=== PATIENT | female | born 1950 | race Caucasian/White ===

== ENCOUNTER → 2017-04-18 | Outpatient (CLI) | payer MEDICARE, BC ==
--- NOTE | 2017-04-18 12:01 | WWHP ---
[facility] - HISTORY AND PHYSICAL DATE OF SERVICE: 04/18/2017 CHIEF COMPLAINT: The patient is here for her routine gynecologic exam and mammogram. HPI: This is a 67-year-old, G2, P2, with an LMP of 1999. The patient is without gynecologic complaints. PAST MEDICAL HISTORY: Multiple sclerosis, hypothyroidism, and osteoporosis. She is status post Fosamax use for more than 5 years in the past. PAST MEDICATIONS: 1. Copaxone 40 mg 3 times weekly. 2. Amantadine 100 mg b.i.d. 3. Baclofen 20 mg q.i.d. 4. Synthroid 75 mcg daily. 5. Xanax 1 mg p.r.n. for anxiety and insomnia. 6. Vitamin D3 two thousand units 1 daily. ALLERGIES: BACTRIM and SULFA, both of which caused rashes. PAST SURGICAL HISTORY: Tubal ligation 1980, appendectomy 1970, colonoscopy in 2016 and this was her fourth one. 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 SOCIAL HISTORY: She denies tobacco, alcohol, and drug use. She has been since 1969 and is sexually active. 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 FAMILY HISTORY: Father had colon cancer. Mother had lung cancer and paternal grandmother had uterine cancer. REVIEW OF SYSTEMS: She has lost 4 pounds over the last year. She denies cardiac or GI problems. RESPIRATORY: She she is getting over a cold. She denies maltreatment or falling. : She sometimes has to get to the bathroom right away and occasionally will have some leakage if she does not get there in time. PHYSICAL EXAM: Blood pressure 138/85, height 5 feet 1 inch, weight 127 pounds, BMI 24. Temperature 97.5, pulse 64. This is a well-developed, well-nourished, white female, who is alert and oriented x3, in no acute distress. HEENT is within normal limits. NECK: Supple without mass or thyromegaly. CHEST AND LUNGS: Clear to auscultation. HEART: Regular rate and rhythm. Breasts are without mass or discharge. Axillary exam is negative for adenopathy. BACK: Negative for CVA tenderness. ABDOMEN: Soft, nontender, without palpable masses. PELVIC EXAMINATION: External genitalia reveals moderate atrophy without lesions. Cervix and vagina reveal [id number] atrophy without lesions. There is no evidence of prolapse. The uterus is mid-position, nongravid size and nontender. There are no palpable adnexal masses or tenderness. Rectovaginal exam is negative for mass or tenderness and is negative for occult blood. EXTREMITIES: Nontender. IMPRESSION: 1. A 67-year-old menopausal female with normal gynecologic exam. 2. History of osteoporosis, status post greater than 5 years of Fosamax use in the past. PLAN: 1. Pap smear was deferred since she had a normal one last year. 2. Self breast examination was discussed. 3. Mammogram will be done today. 4. Bone density testing will be done today. Osteoporosis management was discussed. 5. She states she will be getting her flu shot through Dr. Pearson in the near future. 6. She will return in 1 year. MMODL / IJN: [id number] /
--- NOTE | 2017-04-18 16:24 | BD ---
EXAMINATION TYPE: MG DEXA axial skeleton. DATE OF EXAM: 04/18/2017 COMPARISON: NONE CLINICAL HISTORY: 67-year-old female postmenopausal screening without HRT. Height: 60 IN Weight: 125 LBS FRAX RISK QUESTIONS: Alcohol (3 or more units per day): NO Family History (Parent hip fracture): NO Glucocorticoids (More than 3mos): NO (Ex: prednisone, prednisolone, methylprednisolone, dexamethasone, and hydrocortisone). History of Fracture in Adulthood: NO Secondary Osteoporosis: 1. Type 1 Diabetes: NO 2. Hyperthyroidism: NO 3. Menopause before 45: NO 4. Malnutrition: NO 5. Chronic liver disease: NO Rheumatoid Arthritis: NO Current Tobacco Use: NO RISK FACTORS HISTORY OF: Active: LOW - MODERATE Postmenopausal woman: AGE 50 Take estrogen and/or progesterone medications: NOT NOW How long: AGE 50 - 51 Lost more than 2 inches in height since high school: YES 3" Frequent falls: YES FALLS DUE TO MS MEDICATIONS: Thyroid Medications: YES Which medication: Synthroid How Lon YEARS Osteoporosis Medications: NOT NOW Which medication: Fosamax How Long: AGE 53 - 61 Additional Medications: VIT D, COPAXONE, BACLOFEN, AMANTADINE,SYNTHROID, XANAX, EXAM MEASUREMENTS: Bone mineral densitometry was performed using the FPSI System. Bone mineral density as measured about the Lumbar spine is: ----- L1-L4(G/cm2): 1.084 T Score Values are as follows: ----- L2: -0.9 ----- L3: -1.2 ----- L4: -0.1 ----- L1-L4: -0.8 Bone mineral density has: Decreased -4.8% since study of: 04/25/2014 Bone mineral density about the R hip (g/cm2): 0.743 Bone mineral density about the L hip (g/cm2): 0.787 T Score values are as follows: -----R Neck: -2.1 -----L Neck: -1.8 -----R Total: -2.7 -----L Total: -2.1 Bone mineral density has: Decreased -10.6% since study of: 04/25/2014 IMPRESSION: Osteoporosis (T Score less than -2.5) as noted by T Score values at the right hip. There is increased fracture risk and therapy is usually indicated based on age. Re-Screen 1-2 years. NOTE: T-SCORE=SD OF THE YOUNG ADULT MEAN.
--- NOTE | 2017-04-20 08:02 | MM ---
Reason for exam: screening (asymptomatic). Last mammogram was performed 1 year ago. History: Patient is postmenopausal. Physical Findings: A clinical breast exam by your physician is recommended on an annual basis and results should be correlated with mammographic findings. MG 3D Screening Mammo W/Cad Bilateral CC and MLO view(s) were taken. Prior study comparison: April 12, 2016, bilateral MG 3d screening mammo w/cad. April 07, 2015, bilateral MG screening mammo w CAD. There are scattered fibroglandular densities. There is no discrete abnormality. No significant changes when compared with prior studies. ASSESSMENT: Negative, BI-RAD 1 RECOMMENDATION: Routine screening mammogram of both breasts in 1 year.
== END | disposition home or self-care (01) ==
LOC: WWCWWP 10:29
PROVIDERS: ATTEND Obstetrics & Gynecology
DX: Z12.31 Encounter for screening mammogram for malignant neoplasm of breast (principal); M81.0 Age-related osteoporosis without current pathological fracture
CPT/HCPCS: 77080; 77063; G0202; 82270

== ENCOUNTER → 2017-06-09 | Outpatient (CLI) | payer MEDICARE, BC ==
--- NOTE | 2017-06-09 10:58 | US ---
EXAMINATION TYPE: US abdomen complete DATE OF EXAM: 06/09/2017 COMPARISON: Limited abdominal ultrasound January 28, 2013 CLINICAL HISTORY: R10.11 rt upper quad pain. EXAM MEASUREMENTS: Liver Length: 14.9 cm Gallbladder Wall: 0.2 cm CBD: 0.5 cm Spleen: 11.5 cm Right Kidney: 9.4 x 3.3 x 4.2 cm Left Kidney: 9.8 x 3.9 x 3.8 cm Extensive midline bowel gas Pancreas: small portion of head and tail obscure by bowel gas, portions visualized wnl Liver: wnl Gallbladder: wnl Evidence for sonographic Herzog's sign: no CBD: wnl Spleen: wnl Right Kidney: wnl Left Kidney: Inferior pole obscured by bowel gas Upper IVC: wnl Abd Aorta: portions visualized wnl partially obscured by overlying bowel gas Exam noted suboptimal due to shadowing from overlying bowel gas. The liver is homogenous. The intrahepatic portion of the IVC and visualized abdominal aorta are with in normal limits. There is no evidence of cholelithiasis. Common bile duct is unremarkable. The vi sualized portions of the pancreas are homogenous. The spleen is unremarkable. Kidneys are symmetric and free of hydronephrosis. No renal lesions are seen. IMPRESSION: Suboptimal study without significant finding seen to account for patient's symptoms.
== END | disposition home or self-care (01) ==
LOC: RADUSWWP 07:05
PROVIDERS: ATTEND Family Medicine
DX: R10.11 Right upper quadrant pain (principal)
CPT/HCPCS: 76700

== ENCOUNTER → 2017-06-16 | Outpatient (CLI) | payer MEDICARE, BC ==
--- NOTE | 2017-06-16 15:07 | NM ---
EXAMINATION TYPE: NM hepatobiliary w EF DATE OF EXAM: 06/16/2017 COMPARISON: NONE HISTORY: R10.11 RUQ pain TECHNIQUE: After the intravenous administration of 5.24 mCi Tc 99m Mebrofenin hepatobiliary scintigra phy is performed. Immediate images post injection. FINDINGS: There is satisfactory initial accumulation of tracer by the liver. The gallbladder is visualized wit hin 34 minutes. The small bowel activity is noted within 14 minutes. At one hour 8 ounces of oral e nsure plus is given to mimic CCK and gallbladder ejection fraction is calculated at 52 %, in the norm al range. Therefore there is no scintigraphic evidence of cystic or common bile duct obstruction to suggest acute cholecystitis or gallbladder dyskinesia. IMPRESSION: Exam is within normal limits.
== END | disposition home or self-care (01) ==
LOC: RADNMMAIN 12:56
PROVIDERS: ATTEND Family Medicine
DX: R10.11 Right upper quadrant pain (principal); Z88.1 Allergy status to other antibiotic agents
CPT/HCPCS: 78226; A9537

== ENCOUNTER → 2017-06-23 | Outpatient (CLI) | payer MEDICARE, BC ==
[~2017-06-23] MED LIST: REGADENOSON 0.4 MG/5 ML SYRINGE IV ONE
--- NOTE | 2017-06-23 10:44 | EST ---
EXERCISE STRESS AGE: 67 SEX: F HT: 60" WT: 125 PROTOCOL: Lexiscan Cardiolite Stress Test HEART RATE REST: 63 BLOOD PRESSURE REST: 114/53 MAXIMUM HEART RATE ACHIEVED: 94 MAXIMUM BLOOD PRESSURE: 120/61 85% MPHR: 131 100% MPHR: 154. INDICATION: Chest pain. CLINICAL INFORMATION: Baseline EKG shows sinus rhythm, normal axis, normal intervals. Patient was given intravenous Lexiscan as per protocol. Did not have chest pain or diagnostic ST-segment depression. IMPRESSION: 1. Negative stress test by EKG criteria. 2. Cardiolite portion of the stress test will be reported separately. MMODL / IJN: [id number] /
--- NOTE | 2017-06-23 12:21 | NM ---
EXAMINATION TYPE: NM stress lexiscan cardiolite DATE OF EXAM: 06/23/2017 COMPARISON: NONE HISTORY: Chest pain TECHNIQUE: After the intravenous administration of 10.3 mCi Tc 99m Sestamibi - Cardiolite resting SP ECT images acquired 45 minutes post injection. The patient received 0.4mg Lexiscan, 29.4 mCi Tc 99m Sestamibi - Stress images obtained [address] injection FINDINGS: Review of stress and rest SPECT images demonstrates no distinct perfusion abnormality. Gated analysi s shows normal wall motion with an estimated left ventricular ejection fraction of 78 %. TID is calcu lated at 1.00, within normal limits IMPRESSION: 1. No scintigraphic evidence for reversible ischemia. 2. Estimated left ventricular ejection fraction of 78%.
== END | disposition home or self-care (01) ==
LOC: RADNMMAIN 07:52
PROVIDERS: ATTEND Family Medicine
DX: R07.89 Other chest pain (principal)
CPT/HCPCS: 93017; 78452; A9500; J2785

== ENCOUNTER → 2017-07-27 | Outpatient (CLI) | payer MEDICARE, BC ==
[2017-07-27 12:06] LABS: Blood Urea Nitrogen 15 mg/dL (7-17)
--- NOTE | 2017-07-27 15:02 | CT ---
EXAMINATION TYPE: CT abdomen pelvis w con DATE OF EXAM: 07/27/2017 COMPARISON: NONE HISTORY: Generalized abdominal pain with weigh loss CT DLP: 395.2 mGycm Automated exposure control for dose reduction was used. TECHNIQUE: Helical acquisition of images from the lung bases through the pelvis have been completed. CONTRAST: Performed with Oral Contrast and with IV Contrast, patient injected with 100 mL of Omnipaque 300. FINDINGS: LUNG BASES: No significant abnormality is appreciated. AORTA: Root of the aorta measures borderline at approximately 3.9 cm . LIVER/GB: The liver is enlarged, gallbladder is normal PANCREAS: No significant abnormality is seen. SPLEEN: No significant abnormality is seen. ADRENALS: No significant abnormality is seen. KIDNEYS: No significant abnormality is seen. REPRODUCTIVE ORGANS: No significant abnormality is seen BOWEL: No significant abnormality is seen. FREE AIR: No Free Air visible. ASCITES: None visible. PELVIC ADENOPATHY: None visualized. RETROPERITONEAL ADENOPATHY: No Retroperitoneal Adenopathy visible. URINARY BLADDER: No significant abnormality is seen. 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 IMPRESSION: HEPATOMEGALY. FINDINGS IN THE SPINE DESCRIBED.
== END | disposition home or self-care (01) ==
LOC: RADCTMAIN 11:30
PROVIDERS: ATTEND Family Medicine
DX: R16.0 Hepatomegaly, not elsewhere classified (principal); Z88.1 Allergy status to other antibiotic agents; Z88.8 Allergy status to other drugs, medicaments and biological substances
CPT/HCPCS: 82565; 84520; 74177; 36415; Q9967

== ENCOUNTER → 2018-05-02 | Outpatient (CLI) | payer MEDICARE, BC ==
[2018-05-02 10:38] VITALS: BP 170/86; PULSE 67; TEMP 97.4; BMI 24.2
--- NOTE | 2018-05-02 11:18 | P.HPOB ---
History of Present Illness H&P Date: 05/02/18 Chief Complaint: The patient is here for her routine gynecologic exam and mammogram. This is a 68-year-old with an LMP of 1999. The patient is without gynecologic complaints and denies any postmenopausal bleeding. Review of Systems It has been stable. She denies respiratory, cardiac and G.I. problems. She denies maltreatment. She has had occasional fall associated with her MS. She has been getting physical therapy for this.. : she denies any significant problems with urinary leakage. Past Medical History Past Medical History: Neurologic Disorder (Multiple sclerosis), Thyroid Disorder (Hypothyroid) Additional Past Medical History / Comment(s): Multiple Sclerosis, Hypothyroidism. Osteoporosis status post more than 5 years use of Fosamax. 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 History of Any Multi-Drug Resistant Organisms: None Reported Past Surgical History: Appendectomy, Tubal Ligation Additional Past Surgical History / Comment(s): Colonoscopy 2017(4th). Past Psychological History: No Psychological Hx Reported Smoking Status: Never smoker Past Alcohol Use History: None Reported Past Drug Use History: None Reported Additional History: She has been since 1969 and is sexually active. 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 - Past Family History Father Family Medical History: Cancer (Colon cancer) Additional Family Medical History / Comment(s): Paternal grandmother had uterine cancer. Mother Family Medical History: Cancer (Lung cancer) Medications and Allergies Home Medications Medication Instructions Recorded Confirmed Type ALPRAZolam [Xanax] 1 mg PO HS PRN 05/02/18 05/02/18 History Amantadine HCl [Symmetrel] 100 mg PO BID 05/02/18 05/02/18 History Baclofen [Lioresal] 20 mg PO Q6HR 05/02/18 05/02/18 History Glatiramer Acetate [Copaxone] 40 mg SQ WEEKLY 05/02/18 05/02/18 History Levothyroxine Sodium [Synthroid] 75 mcg PO DAILY 05/02/18 05/02/18 History Allergies Allergy/AdvReac Type Severity Reaction Status Date / Time cefuroxime [From Ceftin] Allergy Rash/Hives Unverified 05/02/18 10:21 Sulfa (Sulfonamide Allergy Rash/Hives Unverified 05/02/18 10:21 Antibiotics) sulfamethoxazole Allergy Rash/Hives Unverified 05/02/18 10:21 [From Bactrim] trimethoprim [From Bactrim] Allergy Rash/Hives Unverified 05/02/18 10:21 Exam Vital Signs Temp Pulse BP 05/02/18 10:21 97.4 F L 67 170/86 Intake and Output 05/01/18 05/02/18 05/02/18 22:59 06:59 14:59 Other: Weight 56.245 kg Height 5'0", weight 125 pounds, BMI 24.2. This is a well-developed well-nourished white female who is alert and oriented times 3 in no acute distress. HEENT: Within normal limits. NECK: Supple without mass or thyromegaly. CHEST AND LUNGS: Clear to auscultation. HEART: Regular rate and rhythm. BREASTS: Are without mass or discharge. AXILLARY EXAM: Negative for adenopathy. BACK: Negative for CVA tenderness. ABDOMEN: Soft, nontender, without palpable masses. PELVIC EXAM: Normal external genitalia with moderate atrophy. Cervix and vagina appear normal with moderate atrophy. The cervix is somewhat stenotic secondary to atrophy. There is no unusual discharge. There is no evidence of prolapse. The uterus is midposition, nongravid size and nontender. There are no palpable adnexal masses or tenderness. RECTAL EXAM: rectovaginal exam is negative for mass or tenderness and is negative for occult blood. EXTREMITIES: Nontender. IMPRESSION: 1. 68-year-old menopausal female with normal gynecologic exam. 2. History of osteoporosis status post greater than 5 years use of Fosamax. PLAN: 1. Pap smear was performed. 2. Self breast awareness was discussed with the patient. 3. Screening mammogram will be done today. 4. Osteoporosis management was discussed. We will plan on repeating bone density testing next year. 5. She plans to get a flu shot this fall. 6. She will return one year.
--- NOTE | 2018-05-07 12:11 | MM ---
Reason for exam: screening (asymptomatic). Last mammogram was performed 1 year ago. History: Patient is postmenopausal. Physical Findings: A clinical breast exam by your physician is recommended on an annual basis and results should be correlated with mammographic findings. MG 3D Screening Mammo W/Cad Bilateral CC and MLO view(s) were taken. Prior study comparison: April 18, 2017, bilateral MG 3d screening mammo w/cad. April 12, 2016, bilateral MG 3d screening mammo w/cad. No significant changes when compared with prior studies. ASSESSMENT: Benign, BI-RAD 2 RECOMMENDATION: Routine screening mammogram of both breasts in 1 year.
== END ==
LOC: WWCWWP 09:58
PROVIDERS: ATTEND Obstetrics & Gynecology
DX: Z12.31 Encounter for screening mammogram for malignant neoplasm of breast (principal)
CPT/HCPCS: 77063; 77067

== ENCOUNTER → 2018-11-13 | Outpatient (CLI) | payer MEDICARE, BC ==
[2018-11-13 12:58] LABS: Basophils # (A) 0.1 k/uL (0-0.2); Basophils % (A) 1 %; Eosinophils # (A) 0.2 k/uL (0-0.7); Eosinophils % (A) 3 %; HCT 42.1 % (34.0-46.0); HGB 13.2 gm/dL (11.4-16.0); Lymphocytes # (A) 1.2 k/uL (1.0-4.8); Lymphocytes % (A) 23 %; MCHC 31.4 g/dL (31.0-37.0); MCV 89.1 fL (80.0-100.0); Mean Platelet Volume 6.9; Monocytes # (A) 0.3 k/uL (0-1.0); Monocytes % (A) 6 %; Neutrophils # (A) 3.3 k/uL (1.3-7.7); Neutrophils % (A) 65 %; Platelet Count 229 k/uL (150-450); RBC 4.72 m/uL (3.80-5.40); RDW 15.1 % (11.5-15.5); WBC 5.1 k/uL (3.8-10.6)
== END ==
LOC: LABWHC1 11:10
PROVIDERS: ATTEND Psychiatry & Neurology Neurology
DX: G35 Multiple sclerosis (principal)
CPT/HCPCS: 36415; 82565; 84450; 84460; 84520; 85025

== ENCOUNTER → 2019-05-07 | Outpatient (CLI) | payer MEDICARE, BC ==
[2019-05-07 13:01] VITALS: BP 161/94; PULSE 65; RESP 18; TEMP 97.8
--- NOTE | 2019-05-07 13:27 | P.HPOB ---
History of Present Illness H&P Date: 05/07/19 Chief Complaint: The patient is here for her routine gynecologic exam and ma mmogram. This is a 69-year-old with an LMP of 1999. The patient is without gynecologic complaints. Review of Systems She has gained 7 pounds over the last year. She denies respiratory, cardiac and G.I. problems. She denies maltreatment or problems with falling. : She does experience occasional urinary leakage which she believes is related to her multiple sclerosis. Past Medical History Past Medical History: Neurologic Disorder, Thyroid Disorder Additional Past Medical History / Comment(s): Multiple Sclerosis,Hypothyroidism. Osteoporosis status post more than 5 years use of Fosamax. 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 History of Any Multi-Drug Resistant Organisms: None Reported Past Surgical History: Appendectomy, Tubal Ligation Additional Past Surgical History / Comment(s): Colonoscopy 2017(4th). Past Psychological History: No Psychological Hx Reported Smoking Status: Never smoker Past Alcohol Use History: None Reported Past Drug Use History: None Reported Additional History: She has been since 1969 and is sexually active. 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 - Past Family History Father Family Medical History: Cancer Additional Family Medical History / Comment(s): Colon cancer. Paternal grandmother had uterine cancer. Mother Family Medical History: Cancer Additional Family Medical History / Comment(s): Lung cancer. Medications and Allergies Home Medications Medication Instructions Recorded Confirmed Type ALPRAZolam [Xanax] 1 mg PO HS PRN 05/02/18 05/07/19 History Baclofen [Lioresal] 20 mg PO Q6HR 05/02/18 05/07/19 History Glatiramer Acetate [Copaxone] 40 mg SQ WEEKLY 05/02/18 05/07/19 History Levothyroxine Sodium [Synthroid] 75 mcg PO DAILY 05/02/18 05/07/19 History Allergies Allergy/AdvReac Type Severity Reaction Status Date / Time cefuroxime [From Ceftin] Allergy Rash/Hives Unverified 05/07/19 13:03 Sulfa (Sulfonamide Allergy Rash/Hives Unverified 05/07/19 13:03 Antibiotics) sulfamethoxazole Allergy Rash/Hives Unverified 05/07/19 13:03 [From Bactrim] trimethoprim [From Bactrim] Allergy Rash/Hives Unverified 05/07/19 13:03 Exam Vital Signs Temp Pulse Resp BP Pulse Ox 05/07/19 12:57 97.8 F 65 18 161/94 98 Intake and Output 05/06/19 05/07/19 05/07/19 22:59 06:59 14:59 Other: Weight 59.874 kg Height 5 feet 0 inches, weight 132 pounds, BMI 25.8. This is a well-developed well-nourished white female who is alert and oriented times 3 in no acute distress. HEENT: Within normal limits. NECK: Supple without mass or thyromegaly. CHEST AND LUNGS: Clear to auscultation. HEART: Regular rate and rhythm. BREASTS: Are without mass or discharge. AXILLARY EXAM: Negative for adenopathy. BACK: Negative for CVA tenderness. ABDOMEN: Soft, nontender, without palpable masses. PELVIC EXAM: Normal external genitalia with mild to moderate atrophy. Cervix and vagina appear normal with mild to moderate atrophy. There is no unusual discharge. There is no evidence of prolapse. The uterus is midposition, nongravid size and nontender. There are no palpable adnexal masses or tenderness. RECTAL EXAM: Rectovaginal exam is negative for mass or tenderness and is negative for occult blood. EXTREMITIES: Nontender. IMPRESSION: 1. 69-year-old menopausal female with normal gynecologic exam. 2. History of osteoporosis status post greater than 5 years use of Fosamax. 3. Elevated blood pressure. PLAN: 1. Pap smears have been discontinued. She is greater than 65 years of age, has had adequate screening in, and has no history of cervical problems. 2. Self breast awareness was discussed with the patient. 3. Screening mammogram will be done today. 4. Osteoporosis management was discussed. I have stressed the importance of adequate calcium, vitamin D and regular exercise. Recommended amounts of calcium and vitamin D were also discussed. Bone density testing will be done today. 5. I have recommended that she check her blood pressure at home on a regular basis since she does have a blood pressure cuff. She was instructed to follow up with Dr. Pearson regarding blood pressure elevations. 6. She plans to get a flu shot in the near future. 7. I have recommended that she return in 1-2 years for her well woman exam.
--- NOTE | 2019-05-07 15:54 | BD ---
EXAMINATION TYPE: Axial Bone Density DATE OF EXAM: 05/07/2019 COMPARISON: 04.18.2017 CLINICAL HISTORY: 69 YR OLD FEMALE....ICD-10 CODE: Z78.0 POST PRIYANKA , M81.0 OSTEOPOROSIS Height: 60.4 Weight: 129 FRAX RISK QUESTIONS: Secondary Osteoporosis: YES 3. Menopause before 45: YES RISK FACTORS HISTORY OF: Postmenopausal woman: YES AT AGE 42, NO HORMONES Lost more than 2 inches in height since high school: YES Frequent falls: UNSTEADY, USES CANE Hyperparathyroidism: NO Adrenal Insufficiency: NO MEDICATIONS: Thyroid Medications: YES SYNTHROID, FOR ABOUT 5 YRS Osteoporosis Medications: STOPPED FOSAMAX 5 YRS AGO Additional Medications: XANAX PRN, VIT D, STEROIDS ON AND OFF FOR MS FOR YRS Additional History: USES CANE, MS, AND ARHTRITIS EXAM MEASUREMENTS: Bone mineral densitometry was performed using the [employer]RETE System. Bone mineral density as measured about the Lumbar spine is: ----- L1-L4(G/cm2): 1.169 T Score Values are as follows: ----- L1: -0.6 ----- L2: -1.1 ----- L3: 0.4 ----- L4: 1.1 ----- L1-L4: -0.1 Bone mineral density has: Increased 7.8% since study of: 04.18.2017 Bone mineral density about the R hip (g/cm2): 0.651 Bone mineral density about the L hip (g/cm2): 0.670 T Score values are as follows: -----R Neck: -2.2 -----L Neck: -2.2 -----R Total: -2.8 -----L Total: - 2.7 Bone mineral density has: Decreased -5.7% since study of: 04.18.2017 FRAX%s: THERE IS A 13.1% CHANCE FOR A MAJOR OSTEOPOROTIC FX AND A 2.7% FOR HIP....PROBABILITY FOR FX IN 10 YRS TIME IMPRESSION: Osteoporosis of the bilateral femora. NOTE: T-SCORE=SD OF THE YOUNG ADULT MEAN.
--- NOTE | 2019-05-08 10:05 | MM ---
Reason for exam: screening (asymptomatic). Last mammogram was performed 1 year ago. History: Patient is postmenopausal. Physical Findings: A clinical breast exam by your physician is recommended on an annual basis and results should be correlated with mammographic findings. MG 3D Screening Mammo W/Cad Bilateral CC, MLO, and XCCL view(s) were taken. Prior study comparison: May 02, 2018, bilateral MG 3d screening mammo w/cad. April 18, 2017, bilateral MG 3d screening mammo w/cad. There are scattered fibroglandular densities. There is a tiny chronic nodularity bilaterally. There is no discrete abnormality. ASSESSMENT: Benign, BI-RAD 2 RECOMMENDATION: Routine screening mammogram of both breasts in 1 year.
== END | disposition home or self-care (01) ==
LOC: WWCWWP 12:24
PROVIDERS: ATTEND Obstetrics & Gynecology
DX: Z12.31 Encounter for screening mammogram for malignant neoplasm of breast (principal); M81.0 Age-related osteoporosis without current pathological fracture; Z78.0 Asymptomatic menopausal state
CPT/HCPCS: 77063; 77067; 77080

== ENCOUNTER → 2019-07-30 | Outpatient (CLI) | payer MEDICARE, BC ==
[2019-07-30 12:06] LABS: Basophils # (A) 0.1 k/uL (0-0.2); Basophils % (A) 1 %; Eosinophils # (A) 0.3 k/uL (0-0.7); Eosinophils % (A) 5 %; HCT 40.5 % (34.0-46.0); HGB 13.1 gm/dL (11.4-16.0); Lymphocytes # (A) 1.1 k/uL (1.0-4.8); Lymphocytes % (A) 23 %; MCH 29.5 pg (25.0-35.0); MCHC 32.4 g/dL (31.0-37.0); Mean Platelet Volume 6.7; Monocytes # (A) 0.3 k/uL (0-1.0); Monocytes % (A) 6 %; Neutrophils # (A) 3.1 k/uL (1.3-7.7); Neutrophils % (A) 62 %; Platelet Count 304 k/uL (150-450); RBC 4.45 m/uL (3.80-5.40); RDW 13.9 % (11.5-15.5)
[2019-07-30 16:47] LABS: ALT 17 U/L (8-44); AST 26 U/L (13-35)
== END ==
LOC: LABWHC1 10:47
PROVIDERS: ATTEND Psychiatry & Neurology Neurology
DX: G35 Multiple sclerosis (principal)
CPT/HCPCS: 36415; 84450; 84460; 85025

== ENCOUNTER → 2019-08-20 | Outpatient (CLI) | payer MEDICARE, BC ==
--- NOTE | 2019-08-20 12:42 | US ---
EXAMINATION TYPE: US venous doppler duplex LE DATE OF EXAM: 08/20/2019 12:30 PM COMPARISON: NONE CLINICAL HISTORY: R60.0 edema. Surgery in right foot in Jun, bilat leg swelling, no h/o dvt SIDE PERFORMED: Bilateral TECHNIQUE: The lower extremity deep venous system is examined utilizing real time linear array sonog ganga with graded compression, doppler sonography and color-flow sonography. VESSELS IMAGED: External Iliac Vein (EIV) Common Femoral Vein Deep Femoral Vein Greater Saphenous Vein * Femoral Vein Popliteal Vein Small Saphenous Vein * Proximal Calf Veins (* superficial vessels) Right Leg: Appears negative for DVT Left Leg: Appears negative for DVT Grayscale, color doppler, spectral doppler imaging performed of the deep veins of the bilateral lower extremities. There is normal flow, compressibility, vascular waveforms. IMPRESSION: No ultrasound evidence for acute DVT in either lower extremity.
== END | disposition home or self-care (01) ==
LOC: RADUSWWP 11:47
PROVIDERS: ATTEND Family Medicine
DX: R60.0 Localized edema (principal)
CPT/HCPCS: 93970

== ENCOUNTER 2020-05-23 08:55 | Emergency (ER) | payer MEDICARE, BC ==
[2020-05-23 09:01] VITALS: TEMP 98.2
[2020-05-23] MEDS ORDERED: SODIUM CHLORIDE 0.9% 1,000 ML IV ONE (09:16)
--- NOTE | 2020-05-23 09:19 | ED ---
General Adult HPI - General Chief complaint: Dizziness Stated complaint: elevated BP, dizzy Time Seen by Provider: 05/23/20 09:03 Source: patient, family, RN notes reviewed Mode of arrival: ambulatory Limitations: no limitations - History of Present Illness Initial comments: Patient is a pleasant [age]-year-old female presenting to the emergency depart ment with complaints of lightheadedness. Onset of symptoms was while at her computer this morning. Patient felt lightheaded and symptoms lasted around 1 minute. Symptoms then resolved and patient has remained symptom-free since that time. No history of similar symptoms previously. Patient does have history of MS. Patient did check her blood pressure following the symptoms and was elevated approximate 170/100. Patient does not have a history of hypertension. Patient did have somewhat elevated blood pressure at her neurologist couple of days ago also. No new weakness or confusion or speech problems. No chest pain - Related Data Home Medications Medication Instructions Recorded Confirmed Baclofen [Lioresal] 20 mg PO Q6HR 05/02/18 05/23/20 Levothyroxine Sodium [Synthroid] 75 mcg PO DAILY 05/02/18 05/23/20 ALPRAZolam [Xanax] 0.5 mg PO DAILY PRN 05/23/20 05/23/20 Cholecalciferol [Vitamin D3 (25 1,000 unit PO DAILY 05/23/20 05/23/20 Mcg = 1000 Iu)] Meloxicam [Mobic] 7.5 mg PO BID 05/23/20 05/23/20 Multivitamins, Thera [Multivitamin 1 tab PO DAILY 05/23/20 05/23/20 (formulary)] Allergies Allergy/AdvReac Type Severity Reaction Status Date / Time cefuroxime [From Ceftin] Allergy Rash/Hives Verified 05/23/20 09:30 Sulfa (Sulfonamide Allergy Rash/Hives Verified 05/23/20 09:30 Antibiotics) sulfamethoxazole Allergy Rash/Hives Verified 05/23/20 09:30 [From Bactrim] trimethoprim [From Bactrim] Allergy Rash/Hives Verified 05/23/20 09:30 Review of Systems ROS Statement: Those systems with pertinent positive or pertinent negative responses have been documented in the HPI. ROS Other: All systems not noted in ROS Statement are negative. Constitutional: Denies: fever Eyes: Denies: eye pain ENT: Denies: ear pain Respiratory: Denies: cough Cardiovascular: Denies: chest pain Endocrine: Denies: fatigue Gastrointestinal: Denies: abdominal pain Genitourinary: Denies: dysuria Musculoskeletal: Denies: back pain Skin: Denies: lesions Neurological: Reports: as per HPI. Denies: headache Past Medical History Past Medical History: Neurologic Disorder, Thyroid Disorder Additional Past Medical History / Comment(s): Multiple Sclerosis,Hypothyroidism. Osteoporosis status post more than 5 years use of Fosamax. 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 History of Any Multi-Drug Resistant Organisms: None Reported Past Surgical History: Appendectomy, Tubal Ligation Additional Past Surgical History / Comment(s): Colonoscopy 2017(4th). Past Psychological History: No Psychological Hx Reported Smoking Status: Never smoker Past Alcohol Use History: None Reported Past Drug Use History: None Reported - Past Family History Father Family Medical History: Cancer Additional Family Medical History / Comment(s): Colon cancer. Paternal grandmother had uterine cancer. Mother Family Medical History: Cancer Additional Family Medical History / Comment(s): Lung cancer. General Exam Limitations: no limitations General appearance: alert, in no apparent distress Head exam: Present: normocephalic Eye exam: Present: normal appearance, PERRL, EOMI. Absent: nystagmus ENT exam: Present: normal oropharynx Neck exam: Present: normal inspection Respiratory exam: Present: normal lung sounds bilaterally Cardiovascular Exam: Present: regular rate, normal rhythm GI/Abdominal exam: Present: soft. Absent: tenderness Extremities exam: Present: normal inspection Neurological exam: Present: alert, oriented X3, CN II-XII intact. Absent: motor sensory deficit Expanded Neurological exam: Present: protecting the airway Patient oriented to: Present: person, place, time Speech: Present: fluid speech Cranial nerves: EOM's Intact: Normal, Facial Sensation: Normal Sensory exam: Upper Extremity Light Touch: Normal, Lower Extremity Light Touch: Normal Motor strength exam: RUE: 5, LUE: 5, RLE: 5, LLE: 5 Eye Response: (4) open spontaneously Motor Response: (6) obeys commands Verbal Response: (5) oriented Psychiatric exam: Present: normal affect, normal mood Skin exam: Present: normal color Course Vital Signs 05/23/20 05/23/20 05/23/20 08:58 09:16 09:59 Temperature 98.2 F Pulse Rate 60 64 68 Respiratory 16 18 18 Rate Blood Pressure 197/112 185/88 179/69 O2 Sat by Pulse 98 98 98 Oximetry 05/23/20 10:33 Temperature Pulse Rate 63 Respiratory 18 Rate Blood Pressure 176/88 O2 Sat by Pulse 98 Oximetry EKG Findings - EKG Comments: EKG Findings:: Normal sinus rhythm 69. W[place] 114. QRS 70. QT 410. QTc 439. Normal axis. LVH criteria. Repolarization change. Medical Decision Making - Medical Decision Making Patient reevaluated and remained symptom-free. Blood pressure 177/79. Patient family updated on results and need for follow-up. - Lab Data Result diagrams: 05/23/20 09:50 05/23/20 09:50 Lab Results 05/23/20 05/23/20 05/23/20 Range/Units 09:50 09:50 09:50 WBC 6.2 (3.8-10.6) k/uL RBC 4.63 (3.80-5.40) m/uL Hgb 13.2 (11.4-16.0) gm/dL Hct 41.8 (34.0-46.0) % MCV 90.4 (80.0-100.0) fL MCH 28.5 (25.0-35.0) pg MCHC 31.6 (31.0-37.0) g/dL RDW 14.7 (11.5-15.5) % Plt Count 259 (150-450) k/uL MPV 6.7 Neutrophils % 62 % Lymphocytes % 26 % Monocytes % 7 % Eosinophils % 3 % Basophils % 1 % Neutrophils # 3.8 (1.3-7.7) k/uL Lymphocytes # 1.6 (1.0-4.8) k/uL Monocytes # 0.4 (0-1.0) k/uL Eosinophils # 0.2 (0-0.7) k/uL Basophils # 0.1 (0-0.2) k/uL Sodium 140 (137-145) mmol/L Potassium 4.4 (3.5-5.1) mmol/L Chloride 108 H (98-107) mmol/L Carbon Dioxide 28 (22-30) mmol/L Anion Gap 4 mmol/L BUN 18 H (7-17) mg/dL Creatinine 0.87 (0.52-1.04) mg/dL Est GFR (CKD-EPI)AfAm 79 (>60 ml/min/1.73 sqM) Est GFR (CKD-EPI)NonAf 68 (>60 ml/min/1.73 sqM) Glucose 85 (74-99) mg/dL POC Glucose (mg/dL) (75-99) mg/dL POC Glu Narcotics Agent ID Calcium 9.0 (8.4-10.2) mg/dL Total Bilirubin 0.7 (0.2-1.3) mg/dL AST 25 (14-36) U/L ALT 13 (4-34) U/L Alkaline Phosphatase 92 (38-126) U/L Total Protein 7.2 (6.3-8.2) g/dL Albumin 4.1 (3.5-5.0) g/dL Urine Color Colorless Urine Appearance Clear (Clear) Urine pH 7.0 (5.0-8.0) Ur Specific [place] 1.004 (1.001-1.035) Urine Protein Negative (Negative) Urine Glucose (UA) Negative (Negative) Urine Ketones Negative (Negative) Urine Blood Negative (Negative) Urine Nitrite Negative (Negative) Urine Bilirubin Negative (Negative) Urine Urobilinogen <2.0 (<2.0) mg/dL Ur Leukocyte Esterase Small H (Negative) Urine RBC 1 (0-5) /hpf Urine WBC 5 (0-5) /hpf Ur Squamous Epith Cells 1 (0-4) /hpf Urine Bacteria Few H (None) /hpf 05/23/20 Range/Units 09:58 WBC (3.8-10.6) k/uL RBC (3.80-5.40) m/uL Hgb (11.4-16.0) gm/dL Hct (34.0-46.0) % MCV (80.0-100.0) fL MCH (25.0-35.0) pg MCHC (31.0-37.0) g/dL RDW (11.5-15.5) % Plt Count (150-450) k/uL MPV Neutrophils % % Lymphocytes % % Monocytes % % Eosinophils % % Basophils % % Neutrophils # (1.3-7.7) k/uL Lymphocytes # (1.0-4.8) k/uL Monocytes # (0-1.0) k/uL Eosinophils # (0-0.7) k/uL Basophils # (0-0.2) k/uL Sodium (137-145) mmol/L Potassium (3.5-5.1) mmol/L Chloride (98-107) mmol/L Carbon Dioxide (22-30) mmol/L Anion Gap mmol/L BUN (7-17) mg/dL Creatinine (0.52-1.04) mg/dL Est GFR (CKD-EPI)AfAm (>60 ml/min/1.73 sqM) Est GFR (CKD-EPI)NonAf (>60 ml/min/1.73 sqM) Glucose (74-99) mg/dL POC Glucose (mg/dL) 109 H (75-99) mg/dL POC Glu Narcotics Agent ID Archana Valdez Calcium (8.4-10.2) mg/dL Total Bilirubin (0.2-1.3) mg/dL AST (14-36) U/L ALT (4-34) U/L Alkaline Phosphatase (38-126) U/L Total Protein (6.3-8.2) g/dL Albumin (3.5-5.0) g/dL Urine Color Urine Appearance (Clear) Urine pH (5.0-8.0) Ur Specific [place] (1.001-1.035) Urine Protein (Negative) Urine Glucose (UA) (Negative) Urine Ketones (Negative) Urine Blood (Negative) Urine Nitrite (Negative) Urine Bilirubin (Negative) Urine Urobilinogen (<2.0) mg/dL Ur Leukocyte Esterase (Negative) Urine RBC (0-5) /hpf Urine WBC (0-5) /hpf Ur Squamous Epith Cells (0-4) /hpf Urine Bacteria (None) /hpf - Radiology Data Radiology results: image reviewed (Chest x-ray shows no acute process) Disposition Clinical Impression: Lightheadedness, High blood pressure Disposition: HOME SELF-CARE Condition: Stable Instructions (If sedation given, give patient instructions): Dizziness (ED), Hypertension (ED) Additional Instructions: Please follow-up with your neurologist and primary care physician in the next couple of days for recheck. Return for uncontrolled blood pressure, lightheadedness, weakness or confusion, chest pain, worsening symptoms or other concerns. Is patient prescribed a controlled substance at d/c from ED?: No Referrals: Jamel Pearson MD [Primary Care Provider] - 1-2 days Time of Disposition: 10:56
[2020-05-23 10:02] VITALS: RESP 18
[2020-05-23 10:04] LABS: Glucose,Whole Blood 109 mg/dL (75-99)
[2020-05-23 10:11] LABS: Basophils # (A) 0.1 k/uL (0-0.2); Basophils % (A) 1 %; Eosinophils # (A) 0.2 k/uL (0-0.7); Eosinophils % (A) 3 %; HCT 41.8 % (34.0-46.0); HGB 13.2 gm/dL (11.4-16.0); Lymphocytes # (A) 1.6 k/uL (1.0-4.8); Lymphocytes % (A) 26 %; MCH 28.5 pg (25.0-35.0); MCHC 31.6 g/dL (31.0-37.0); MCV 90.4 fL (80.0-100.0); Mean Platelet Volume 6.7; Monocytes # (A) 0.4 k/uL (0-1.0); Monocytes % (A) 7 %; Neutrophils # (A) 3.8 k/uL (1.3-7.7); Neutrophils % (A) 62 %; Platelet Count 259 k/uL (150-450); RBC 4.63 m/uL (3.80-5.40); RDW 14.7 % (11.5-15.5); WBC 6.2 k/uL (3.8-10.6)
[2020-05-23 10:18] LABS: Albumin 4.1 g/dL (3.5-5.0); Potassium 4.4 mmol/L (3.5-5.1); Total Bilirubin 0.7 mg/dL (0.2-1.3); Total Protein 7.2 g/dL (6.3-8.2)
--- NOTE | 2020-05-23 10:24 | XR ---
EXAMINATION TYPE: XR chest 2V DATE OF EXAM: 05/23/2020 COMPARISON: None INDICATION: Altered mental status TECHNIQUE: Frontal and lateral views of the chest are obtained. FINDINGS: The heart size is normal. The pulmonary vasculature is normal. The lungs are clear. IMPRESSION: 1. No acute pulmonary process.
[2020-05-23 10:31] LABS: Appearance,Urine Clear (Clear); Bacteria,Urine Few /hpf; Bilirubin,Urine Negative (Negative); Blood,Urine Negative (Negative); Color,Urine Colorless; Glucose,Urine (UA) Negative (Negative); Ketones,Urine Negative (Negative); Leukocyte Esterase,Urine Small (Negative); Nitrite,Urine Negative (Negative); Protein,Urine Negative (Negative); RBC,Urine 1 /hpf (0-5); Specific Gravity,Urine 1.004 (1.001-1.035); Squamous Epithelial Cell,Urine 1 /hpf (0-4); Urobilinogen,Urine <2.0 mg/dL (<2.0); WBC,Urine 5 /hpf (0-5)
[2020-05-23 11:08] VITALS: BP 178/89; PULSE 70
== END 2020-05-23 11:07 | disposition home or self-care (01) ==
LOC: EC 08:55
DX: R42 Dizziness and giddiness (principal); R03.0 Elevated blood-pressure reading, without diagnosis of hypertension; E03.9 Hypothyroidism, unspecified; G35 Multiple sclerosis; M81.0 Age-related osteoporosis without current pathological fracture; Z79.890 Hormone replacement therapy; Z79.899 Other long term (current) drug therapy; Z88.2 Allergy status to sulfonamides; Z88.1 Allergy status to other antibiotic agents; Z90.49 Acquired absence of other specified parts of digestive tract
CPT/HCPCS: 36415; 71046; 80053; 81001; 85025; 93005; 99284

== ENCOUNTER → 2020-06-08 | Outpatient (CLI) | payer MEDICARE, BC ==
--- NOTE | 2020-06-09 14:20 | MM ---
Reason for exam: screening (asymptomatic). Last mammogram was performed 1 year and 1 month ago. History: Patient is postmenopausal. Physical Findings: A clinical breast exam by your physician is recommended on an annual basis and results should be correlated with mammographic findings. MG 3D Screening Mammo W/Cad Bilateral CC and MLO view(s) were taken. Prior study comparison: May 07, 2019, bilateral MG 3d screening mammo w/cad. May 02, 2018, bilateral MG 3d screening mammo w/cad. There are scattered fibroglandular densities. No significant changes when compared with prior studies. ASSESSMENT: Benign, BI-RAD 2 RECOMMENDATION: Routine screening mammogram of both breasts in 1 year.
== END | disposition home or self-care (01) ==
LOC: RADMAMWWP 14:48
PROVIDERS: ATTEND Family Medicine
DX: Z12.31 Encounter for screening mammogram for malignant neoplasm of breast (principal)
CPT/HCPCS: 77063; 77067

== ENCOUNTER → 2021-03-25 | Outpatient (CLI) | payer MEDICARE, BC ==
--- NOTE | 2021-03-26 05:22 | MR ---
EXAMINATION TYPE: MR brain wo/w con DATE OF EXAM: 03/25/2021 COMPARISON: 12/01/2015 HISTORY: MS CONTRAST: Standard multiplanar, multisequence MRI departmental protocol utilizing 6.5 mL intravenous Gadavist g adolinium contrast. On the T2 and FLAIR images there are are nodular areas of increased signal adjacent to the lateral ve ntricles in the periventricular white matter. These measure up to 1 cm. These appear coalescent adjac ent to the ventricles. Foci are also involving the corpus callosum. The sella turcica appears normal. Brainstem appears normal. There is no evidence of a posterior fossa mass. There is no evidence of or bital mass. Contrast images show no pathologic enhancement. There is normal enhancement of the venous sinuses. 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 There is clearing of the right maxillary sinusitis compared to old exam. I do not see any significant new white matter disease.
== END | disposition home or self-care (01) ==
LOC: RADMRIMAIN 13:40
PROVIDERS: ATTEND Psychiatry & Neurology Neurology
DX: J32.0 Chronic maxillary sinusitis (principal); G37.9 Demyelinating disease of central nervous system, unspecified; G35 Multiple sclerosis; G45.2 Multiple and bilateral precerebral artery syndromes
CPT/HCPCS: 70553; A9585

== ENCOUNTER 2021-08-05 12:10 | Emergency (ER) | payer BC, MEDICARE ==
[2021-08-05 12:15] VITALS: TEMP 97.8
--- NOTE | 2021-08-05 12:31 | ED ---
General Adult HPI - General Chief complaint: Fall Stated complaint: Fall Time Seen by Provider: 08/05/21 12:18 Source: patient, RN notes reviewed Mode of arrival: wheelchair Limitations: no limitations - History of Present Illness Initial comments: Patient is a pleasant 71-year-old female presenting to the emergency department following a fall. Incident occurred today in the garage. Patient tripped. Patient landed on her left forearm. Patient has discomfort and swelling left distal forearm, near the ulnar side. Discomfort increases with touch and movement. No history of similar injury previously. No other area of injury or concern. No head injury or loss of consciousness. Patient does not want pain medicine at this time. - Related Data Home Medications Medication Instructions Recorded Confirmed Baclofen [Lioresal] 20 mg PO Q6HR 05/02/18 05/23/20 Levothyroxine Sodium [Synthroid] 75 mcg PO DAILY 05/02/18 05/23/20 ALPRAZolam [Xanax] 0.5 mg PO DAILY PRN 05/23/20 05/23/20 Cholecalciferol [Vitamin D3 (25 1,000 unit PO DAILY 05/23/20 05/23/20 Mcg = 1000 Iu)] Meloxicam [Mobic] 7.5 mg PO BID 05/23/20 05/23/20 Multivitamins, Thera [Multivitamin 1 tab PO DAILY 05/23/20 05/23/20 (formulary)] Allergies Allergy/AdvReac Type Severity Reaction Status Date / Time cefuroxime [From Ceftin] Allergy Rash/Hives Verified 08/05/21 12:15 Sulfa (Sulfonamide Allergy Rash/Hives Verified 08/05/21 12:15 Antibiotics) sulfamethoxazole Allergy Rash/Hives Verified 08/05/21 12:15 [From Bactrim] trimethoprim [From Bactrim] Allergy Rash/Hives Verified 08/05/21 12:15 Review of Systems ROS Statement: Those systems with pertinent positive or pertinent negative responses have been documented in the HPI. ROS Other: All systems not noted in ROS Statement are negative. Constitutional: Denies: fever Eyes: Denies: eye pain ENT: Denies: throat pain Respiratory: Denies: cough Cardiovascular: Denies: chest pain Endocrine: Denies: fatigue Gastrointestinal: Denies: abdominal pain Genitourinary: Denies: dysuria Musculoskeletal: Reports: as per HPI. Denies: back pain Skin: Denies: rash Neurological: Denies: headache, weakness, confusion Past Medical History Past Medical History: Neurologic Disorder, Thyroid Disorder Additional Past Medical History / Comment(s): Multiple Sclerosis,Hypothyroidism. Osteoporosis status post more than 5 years use of Fosamax. 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 History of Any Multi-Drug Resistant Organisms: None Reported Past Surgical History: Appendectomy, Tubal Ligation Additional Past Surgical History / Comment(s): Colonoscopy 2017(4th). Past Psychological History: No Psychological Hx Reported Smoking Status: Never smoker Past Alcohol Use History: None Reported Past Drug Use History: None Reported - Past Family History Father Family Medical History: Cancer Additional Family Medical History / Comment(s): Colon cancer. Paternal grandmother had uterine cancer. Mother Family Medical History: Cancer Additional Family Medical History / Comment(s): Lung cancer. General Exam Limitations: no limitations General appearance: alert, in no apparent distress Head exam: Present: atraumatic, normocephalic Eye exam: Present: normal appearance Neck exam: Present: normal inspection. Absent: tenderness Respiratory exam: Present: normal lung sounds bilaterally Cardiovascular Exam: Present: regular rate, normal rhythm Expanded Peripheral pulses: 2+: Radial (L) GI/Abdominal exam: Present: soft. Absent: tenderness Extremities exam: Present: full ROM, tenderness (Tenderness with bruising and swelling left distal ulnar region.) Neurological exam: Present: alert. Absent: motor sensory deficit Expanded Sensory exam: Lower Extremity Light Touch: Normal Motor strength exam: RUE: 5, LUE: 5 Psychiatric exam: Present: normal affect, normal mood Skin exam: Present: normal color Course Vital Signs 08/05/21 12:11 Temperature 97.8 F Pulse Rate 65 Respiratory 16 Rate Blood Pressure 189/91 O2 Sat by Pulse 98 Oximetry Procedures - Orthopedic Splinting/Casting Injury #1 Side: left Upper Extremity Injury Location: long arm Upper Extremity Immobilizer: ulnar gutter Medical Decision Making - Medical Decision Making Patient reevaluated and updated. Splint placed for fracture. Distally the extremity is neurovascular intact post splint placement. - Radiology Data Radiology results: image reviewed (Leak distal ulnar fracture with 4 mm displacement) Disposition Clinical Impression: Ulna distal fracture Disposition: HOME SELF-CARE Condition: Stable Instructions (If sedation given, give patient instructions): Arm Fracture in Adults (ED) Additional Instructions: Please follow-up with primary care physician in the next couple days for recheck. Please follow-up with orthopedics in the next couple days for evaluation and probable cast placement on left arm. Return for increased pain, hand problems, weakness, worsening or changing symptoms or other concerns. Is patient prescribed a controlled substance at d/c from ED?: No Referrals: Jamel Pearson MD [Primary Care Provider] - 1-2 days Karla Escalante DO [Doctor of Osteopathic Medicine] - 1-2 days Time of Disposition: 13:24
--- NOTE | 2021-08-05 12:49 | XR ---
EXAMINATION TYPE: XR forearm LT DATE OF EXAM: 08/05/2021 COMPARISON: NONE HISTORY: 71-year-old female pain after falling TECHNIQUE: 2 views FINDINGS: Soft tissue swelling along the distal forearm. There is an oblique fracture of the distal ulnar shaft minimally displaced medially by 4 mm. Prominent negative ulnar variance at the wrist with some deepe aec of the sigmoid notch. Moderate osteoarthritic change of the base of the thumb. IMPRESSION: 1. Oblique fracture distal ulnar shaft displaced minimally by 4 mm. 2. Correlate for any potential chronic symptoms of ulnar impingement syndrome at the wrist.
[2021-08-05 14:02] VITALS: BP 161/78; PULSE 66; RESP 18
[2021-08-05] MEDS ORDERED: ACET/COD 300 MG/30 MG STARTER PACK 6 TAB BTL PO STA (14:09)
== END 2021-08-05 14:15 | disposition home or self-care (01) ==
LOC: EC 12:10
DX: S52.602A Unspecified fracture of lower end of left ulna, initial encounter for closed fracture (principal); Z88.1 Allergy status to other antibiotic agents; Z88.2 Allergy status to sulfonamides; W19.XXXA Unspecified fall, initial encounter
CPT/HCPCS: 99283

== ENCOUNTER → 2021-09-07 | Outpatient (CLI) | payer MEDICARE ==
--- NOTE | 2021-09-07 16:07 | BD ---
EXAMINATION TYPE: Axial Bone Density DATE OF EXAM: 09/07/2021 COMPARISON: 05/07/2019 CLINICAL HISTORY: 71 years year old Female. ICD-10 CODE: Z78.0 post menopausal Height: 60 IN Weight: 138 LBS FRAX RISK QUESTIONS: History of Fracture in Adulthood: LT FOREARM FX AGE 71 Secondary Osteoporosis: 3. Menopause before 45: AGE 49 RISK FACTORS HISTORY OF: History of Wrist Fracture: RT WRIST AGE 71 Active: YES Postmenopausal woman: AGE 49 Frequent falls: YES DUE TO MS MEDICATIONS: Thyroid Medications: YES Which medication: Levothyroxine How Lon+ YEARS Osteoporosis Medications: NOT NOW Which medication: Fosamax How Lon YEARS Additional Medications: VIT D, LEVOTHYROXINE, BACLOPHEN, IBUPROFEN, EXAM MEASUREMENTS: Bone mineral densitometry was performed using the [employer] System. Bone mineral density as measured about the Lumbar spine is: ----- L1-L4(G/cm2): 1.102 T Score Values are as follows: ----- L1: -0.1 ----- L2: -0.6 ----- L3: -1.3 ----- L4: -06 ----- L1-L4: -0.7 Bone mineral density has: Decreased -8.5% since study of: 05/07/2019 Bone mineral density about the R hip (g/cm2): 0.653 Bone mineral density about the L hip (g/cm2): 0.707 T Score values are as follows: -----R Neck: -2.8 -----L Neck: -2.4 -----R Total: 3.2 -----L Total: 2.7 Bone mineral density has: Decreased -3.9% since study of: 05/07/2019 FRAX%s: The graph provided illustrates a chance for a major osteoporotic fx and a chance for the hips probability for fx in 10 years time. IMPRESSION: Osteoporosis (T Score less than -2.5). There is increased fracture risk and therapy is usually indicated based on age. Re-Screen 1-2 years. NOTE: T-SCORE=SD OF THE YOUNG ADULT MEAN.
--- NOTE | 2021-09-09 08:15 | MM ---
Reason for exam: screening (asymptomatic). Last mammogram was performed 1 year and 3 months ago. History: Patient is postmenopausal. Physical Findings: A clinical breast exam by your physician is recommended on an annual basis and results should be correlated with mammographic findings. MG 3D Screening Mammo W/Cad Bilateral CC and MLO view(s) were taken. Prior study comparison: June 08, 2020, bilateral MG 3d screening mammo w/cad. May 07, 2019, bilateral MG 3d screening mammo w/cad. There are scattered fibroglandular densities. There is small stable chronic nodularity bilaterally. There is no discrete abnormality. ASSESSMENT: Benign, BI-RAD 2 RECOMMENDATION: Routine screening mammogram of both breasts in 1 year.
== END | disposition home or self-care (01) ==
LOC: RADMAMWWP 13:16
PROVIDERS: ATTEND Family Medicine
DX: Z12.31 Encounter for screening mammogram for malignant neoplasm of breast (principal); Z78.0 Asymptomatic menopausal state
CPT/HCPCS: 77063; 77067; 77080

== ENCOUNTER → 2021-11-25 | Outpatient (CLI) | payer MEDICARE ==
--- NOTE | 2021-11-26 07:14 | US ---
EXAMINATION TYPE: US thyroid st tissue head/neck DATE OF EXAM: 11/25/2021 COMPARISON: NONE CLINICAL HISTORY: E04.1 Thyroid Nodule. Patient states doctor found incidental finding after recent M RI GLAND SIZE: Right Lobe: 5.6 x 1.9 x 1.8 cm Overall Parenchyma: heterogenous Left Lobe: 4.2 x 1.2 x 1.4 cm Overall Parenchyma: heterogeneous Isthmus Thickness: 0.23 cm NODULES RIGHT: # of nodules measured on right: 0 LEFT: # of nodules measured on left: 0 ISTHMUS: # of nodules measured in the isthmus: 0 Bilateral neck scanned, no evidence of lymphadenopathy. IMPRESSION: Thyroid gland is heterogenous and the right lobe is enlarged.
== END | disposition home or self-care (01) ==
LOC: RADUSWWP 16:48
PROVIDERS: ATTEND Family Medicine
DX: E04.1 Nontoxic single thyroid nodule (principal)
CPT/HCPCS: 76536

== ENCOUNTER → 2021-12-16 | Outpatient (CLI) | payer MEDICARE ==
--- NOTE | 2021-12-16 13:21 | CT ---
EXAMINATION TYPE: CT chest w con DATE OF EXAM: 12/16/2021 COMPARISON: None HISTORY: Solitary pulmonary nodule CT DLP: 147.60 mGycm, Automated exposure control for dose reduction was used. CONTRAST: Performed injected with 70 mL of Isovue 300. TECHNIQUE: Axial images were obtained at 5 mm thick sections. Reconstructed images are reviewed on [employer] computer in the coronal plane. FINDINGS: Portion of the thyroid visualized is normal. Valves streak opacities in the posterior right lung base. Consider atelectasis. A 0.5 cm nodule may b e in the costophrenic posterior angle, series 4 image 49. Minimal right pleural effusion is present. No enlarged mediastinal or hilar adenopathy is evident. There are scattered small lymph nodes within the mediastinum. The ascending aorta diameter at the level of the main pulmonary artery is 3.6 cm. The main pulmonary artery diameter at the bifurcation is 2.[address] sections are obtained through the upper abdomen. Abdomen is essentially unremarkable. IMPRESSIONS: 1. Small posterior right lung base nodule. Follow-up exam in 6 months is recommended. 2. Small right pleural effusion. Some right basilar atelectasis may be present.
== END | disposition home or self-care (01) ==
LOC: RADCTMAIN 10:15
PROVIDERS: ATTEND Family Medicine
DX: R91.1 Solitary pulmonary nodule (principal); R94.4 Abnormal results of kidney function studies
CPT/HCPCS: 71260; 82565; 84520

== ENCOUNTER → 2022-09-08 | Outpatient (CLI) | payer MEDICARE ==
--- NOTE | 2022-09-09 08:05 | MM ---
Reason for Exam: Screening (asymptomatic). Last screening mammogram was performed 12 month(s) ago. Patient History: Menarche at age 13. First Full-Term at age 20. Postmenopausal. Risk Values: Myrna 5 year model risk: 1.3%. NCI Lifetime model risk: 3.5%. Prior Study Comparison: 05/07/2019 Bilateral Screening Mammogram, [facility]. 06/08/2020 Bilateral Screening Mammogram, [facility]. 09/07/2021 Bilateral Screening Mammogram, [facility]. Tissue Density: There are scattered fibroglandular densities. Findings: Analyzed By CAD. There is no suspicious group of microcalcifications or new suspicious mass in either breast. Overall Assessment: Negative, BI-RAD 1 Management: Screening Mammogram of both breasts in 1 year. A clinical breast exam by your physician is recommended on an annual basis and results should be correlated with mammographic findings. Electronically signed and approved by: Joel Mtz M.D. Radiologis
== END | disposition home or self-care (01) ==
LOC: RADMAMWWP 10:52
PROVIDERS: ATTEND Family Medicine
DX: Z12.31 Encounter for screening mammogram for malignant neoplasm of breast (principal); Z78.0 Asymptomatic menopausal state
CPT/HCPCS: 77063; 77067

== ENCOUNTER → 2023-09-13 | Outpatient (CLI) | payer MEDICARE ==
--- NOTE | 2023-09-14 14:25 | MM ---
Reason for Exam: Screening (asymptomatic). Last mammogram was performed 1 year(s) and 1 month(s) ago. Patient History: Menarche at age 13. First Full-Term at age 20. Postmenopausal. Risk Values: Myrna 5 year model risk: 1.3%. NCI Lifetime model risk: 3.3%. Prior Study Comparison: 06/08/2020 Bilateral Screening Mammogram, [facility]. 09/07/2021 Bilateral Screening Mammogram, [facility]. 09/08/2022 Bilateral MG 3D screening mammo w/cad, [facility]. Tissue Density: The breasts are almost entirely fatty. Findings: Analyzed By CAD. Right breast: There is no suspicious group of microcalcifications or new suspicious mass. Left breast: There is no suspicious group of microcalcifications or new suspicious mass. Overall Assessment: Negative, BI-RAD 1 Management: Screening Mammogram of both breasts in [address] [facility] will attempt to contact patient to return for supplemental views and ultrasound if indicated. Patient should continue monthly self-breast exams. A clinical breast exam by your physician is recommended on an annual basis. This exam should not preclude additional follow-up of suspicious palpable abnormalities. Note on Myrna scores and lifetime risk: 1. A Myrna score greater than 3% is considered moderate risk. If this is the case, consider specialist referral to assess eligibility for a risk reducing agent. 2. If overall lifetime risk for the development of breast cancer is 20% or higher, the patient may qualify for future screening with alternating mammogram and breast MRI. Electronically signed and approved by: Santiago Vasquez DO
== END | disposition home or self-care (01) ==
LOC: RADMAMWWP 10:29
PROVIDERS: ATTEND Family Medicine
DX: Z12.31 Encounter for screening mammogram for malignant neoplasm of breast (principal); Z78.0 Asymptomatic menopausal state
CPT/HCPCS: 77063; 77067

== ENCOUNTER → 2024-10-16 | Outpatient (CLI) | payer MEDICARE ==
--- NOTE | 2024-10-16 11:59 | MM ---
Reason for Exam: Screening (asymptomatic). Last mammogram was performed 1 year(s) and 1 month(s) ago. Patient History: Menarche at age 13. First Full-Term at age 20. Postmenopausal. Risk Values: Myrna 5 year model risk: 1.3%. NCI Lifetime model risk: 3.1%. Prior Study Comparison: 09/07/2021 Bilateral Screening Mammogram, [facility]. 09/08/2022 Bilateral MG 3D screening mammo w/cad, [facility]. 09/13/2023 Bilateral MG 3D screening mammo w/cad, [facility]. Tissue Density: There are scattered areas of fibroglandular density. Findings: Analyzed By CAD. Right breast: There is no suspicious group of microcalcifications or new suspicious mass. Left breast: There is no suspicious group of microcalcifications or new suspicious mass. Overall Assessment: Negative, BI-RAD 1 Management: Screening Mammogram of both breasts in [address] [facility] will attempt to contact patient to return for supplemental views and ultrasound if indicated. Patient should continue monthly self-breast exams. A clinical breast exam by your physician is recommended on an annual basis. This exam should not preclude additional follow-up of suspicious palpable abnormalities. Note on Myrna scores and lifetime risk: 1. A Myrna score greater than 3% is considered moderate risk. If this is the case, consider specialist referral to assess eligibility for a risk reducing agent. 2. If overall lifetime risk for the development of breast cancer is 20% or higher, the patient may qualify for future screening with alternating mammogram and breast MRI. [facility], , 10/16/2024 11:56 AM. Electronically signed and approved by: Santiago Vasquez DO
== END | disposition home or self-care (01) ==
LOC: RADMAMWWP 09:53
PROVIDERS: ATTEND Family Medicine
DX: Z12.31 Encounter for screening mammogram for malignant neoplasm of breast (principal); R92.323 Mammographic fibroglandular density, bilateral breasts; Z78.0 Asymptomatic menopausal state
CPT/HCPCS: 77063; 77067